=== PATIENT | male | born 1945 | race African-American/Black ===

== ENCOUNTER 2018-07-14 11:30 | Emergency (ER) | payer MEDICARE ==
[~2018-07-14] VITALS: Ht 177.8 cm; Wt 110.7 kg
--- NOTE | 2018-07-14 11:59 | PHYS DOC ---
Past History Past Medical History: Diabetes, Hypertension Past Surgical History: No Surgical History Alcohol Use: None Drug Use: None Adult General Chief Complaint Chief Complaint: ABDOMINAL PAIN HPI HPI Patient is a 73-year-old male who presents with one-week history of upper abdominal pain with loose stools. Patient indicates that this morning when he woke up he didn't have any pain but then he ate breakfast consisted of sausage and eggs and states that the pain had returned. Currently rates his pain to be a 9 out of 10. He states that he is very nauseated but has not been able to vomit. He states that yesterday he had eaten Serbian food and his abdominal pain returned after the Serbian food. Patient does indicate that he has not had any abdominal surgeries. He states that his last bowel movement was last night. Review of Systems Review of Systems Constitutional: Denies fever or chills [] Respiratory: Denies cough or shortness of breath [] Cardiovascular: No additional information not addressed in HPI [] GI: Complains of upper abdominal pain with nausea and diarrhea [] : Denies dysuria or hematuria [] Musculoskeletal: Denies back pain or joint pain [] All other systems were reviewed and found to be within normal limits, except as documented in this note. Current Medications Current Medications Current Medications Medications (Trade) Dose Ordered Sig/[facility] Start Time Stop Time Status Last Admin Dose Admin Fentanyl Citrate (Fentanyl 2ml Vial) 25 mcg 1X ONCE 07/14/18 12:00 07/14/18 12:01 Ondansetron HCl (Zofran) 4 mg 1X ONCE 07/14/18 12:00 07/14/18 12:01 Sodium Chloride 1,000 ml @ 150 mls/hr [id number] 07/14/18 11:36 07/14/18 18:15 Allergies Allergies Allergies Coded Allergies Type Severity Reaction Last Updated Verified Penicillins Allergy Unknown 07/14/18 Yes amlodipine Allergy Unknown 07/14/18 Yes diazepam Allergy Unknown 07/14/18 Yes sulfamethoxazole Allergy Unknown 07/14/18 Yes trimethoprim Allergy Unknown 07/14/18 Yes Physical Exam Physical Exam Constitutional: Well developed, well nourished, no acute distress, non-toxic appearance. [] HENT: Normocephalic, atraumatic, bilateral external ears normal, oropharynx moist, no oral exudates, nose normal. [] Eyes: PERRLA, EOMI, conjunctiva normal, no discharge. [] Neck: Normal range of motion, no tenderness, supple. [] Cardiovascular: Regular rate and rhythm [] Lungs & Thorax: Bilateral breath sounds clear to auscultation [] Abdomen: Bowel sounds slightly diminished, soft, with moderate right upper quadrant tenderness. [] Skin: Warm, dry, no erythema, no rash. [] Extremities: No tenderness, no cyanosis, no clubbing, ROM intact, no edema. [] Neurologic: Awake and alert, no focal deficits noted. [] Current Patient Data Vital Signs Vital Signs Date Time Temp Pulse Resp B/P (MAP) Pulse Ox O2 Delivery O2 Flow Rate FiO2 07/14/18 11:41 98.2 86 18 98 Room Air EKG EKG [] Radiology/Procedures Radiology/Procedures [] Impressions: PROCEDURE: CT ABDOMEN PELVIS WO CONTRAST PQRS Compliance statement: One or more of the following individualized dose reduction techniques were utilized for this examination: 1. Automated exposure control. 2. Adjustment of the mA and/or kV according to patient size. 3. Use of iterative reconstruction technique. Indication:UPPER ABDOMINAL PAIN ALL THE WAY ACROSS
NO ORAL OR IV CONTRAST TECHNIQUE: CT abdomen and pelvis without IV contrast with multiplanar reformats. COMPARISON: None FINDINGS: Limited evaluation of solid abdominal and pelvic organs due to lack of IV contrast. Heart is normal in size. No pericardial or pleural effusion. Clear lung bases. Moderate-sized sliding hiatal hernia. Noncontrast appearance of the liver, spleen, gallbladder, pancreas, adrenals and kidneys is within normal limits. No enlarged retroperitoneal or pelvic adenopathy. No free pelvic fluid or ascites. Small left fat-containing inguinal hernia. Small omental fat-containing medical hernia measuring 5.9 x 3.6 cm with neck of the hernia measuring 4 cm. The prostate and seminal vesicles show no large mass. Urinary bladder is within normal limits. Normal appendix. No pneumoperitoneum. No suspicious bony lesion. IMPRESSION: Limited evaluation of solid abdominal and pelvic organs due to lack of IV contrast. 1. Moderate sliding hiatal hernia. 2. Small omental fat-containing umbilical hernia. Electronically signed by: Feliz Alcala DO (07/14/2018 1:52 PM) [facility] Course & Med Decision Making Course & Med Decision Making Pertinent Labs and Imaging studies reviewed. (See chart for details) [] Dragon Disclaimer Dragon Disclaimer This electronic medical record was generated, in whole or in part, using a voice recognition dictation system. Departure Departure: Impression: Primary Impression: Epigastric abdominal pain Additional Impression: Gastritis Disposition: HOME, SELF-CARE Condition: STABLE Referrals: PCP,NO (PCP) Patient Instructions: Abdominal Pain, Gastritis, Adult Scripts Ranitidine Hcl (ZANTAC) 150 Mg Tablet 1 TAB PO BID for heartburn, #30 TAB Prov: YVROSE ZULETA Jr. DO 07/14/18 Ondansetron Hcl (ZOFRAN) 4 Mg Tablet 1 TAB PO Q8HRS PRN for NAUSEA/VOMITING, #12 TAB Prov: YVROSE ZULETA Jr. DO 07/14/18 Hydrocodone Bit/Acetaminophen (NORCO 5-325 TABLET) 1 Each Tablet 1 TAB PO PRN Q6HRS PRN for PAIN, #12 TAB 0 Refills Prov: YVROSE ZULETA Jr. DO 07/14/18 Problem Qualifiers Additional Impression: Gastritis Gastritis type: unspecified gastritis Chronicity: unspecified Gastritis bleeding: without bleeding Qualified Codes: K29.70 - Gastritis, unspecified, without bleeding YVROSE ZULETA Jr. DO Jul 14, 2018 11:59
[2018-07-14] MEDS: IV NORMAL SALINE 1,000ML 1,000 ML IV SCH (12:07)
[2018-07-14] MEDS: ONDANSETRON PF 4 MG/2 ML VIAL. IV ONE (12:08)
[2018-07-14 12:19] LABS: BILIRUBIN,URINE NEG (NEG); CLARITY,URINE CLEAR; COLOR,URINE YELLOW; GLUCOSE,URINE 500 mg/dL (NEG)
[2018-07-14 12:20] LABS: BACTERIA,URINE 0 /HPF (0-FEW); NITRITE,URINE NEG (NEG); SQUAMOUS EPITHELIAL CELL,UR OCC /LPF; UROBILINOGEN,URINE 0.2 mg/dL (0.2 mg/dL); WBC,URINE OCC /HPF (0-4)
[2018-07-14 12:47] LABS: BASO % 0 % (0-3); EOS # 0.1 x10^3/uL (0.0-0.7); EOS % 2 % (0-3); HEMATOCRIT 42.5 % (39.0-53.0); HEMOGLOBIN 13.5 g/dL (13.0-17.5); LYMPH # 1.5 x10^3/uL (1.0-4.8); LYMPH % 18 % (24-48); MEAN CORPUSCULAR HEMOGLOBIN 21 pg (25-35); MEAN CORPUSCULAR HGB CONC 32 g/dL (31-37); MEAN CORPUSCULAR VOLUME 67 fL (79-100); MONO # 0.8 x10^3/uL (0.0-1.1); MONO % 9 % (0-9); NEUT # 6.1 x10^3uL (1.8-7.7); NEUT % 71 % (31-73); PLATELET COUNT 209 x10^3/uL (140-400); RED BLOOD COUNT 6.32 x10^6/uL (4.30-5.70); RED CELL DISTRIBUTION WIDTH 16.7 % (11.5-14.5); WHITE BLOOD COUNT 8.5 x10^3/uL (4.0-11.0)
[2018-07-14 13:00] LABS: ALBUMIN 3.5 g/dL (3.4-5.0); ALBUMIN/GLOBULIN RATIO 0.9 (1.0-1.7); CALCIUM 9.2 mg/dL (8.5-10.1); CREATININE 1.5 mg/dL (0.7-1.3); GFR 55.8; POTASSIUM 3.8 mmol/L (3.5-5.1); TOTAL BILIRUBIN 0.6 mg/dL (0.2-1.0); TOTAL PROTEIN 7.5 g/dL (6.4-8.2)
[2018-07-14 13:26] VITALS: BP 148/89
[2018-07-14 13:41] LABS: PLT ESTIMATE ADEQUATE (ADEQUATE)
[2018-07-14 13:42] LABS: OVALOCYTES FEW
[2018-07-14 13:43] LABS: ANISOCYTOSIS SLIGHT; HYPOCHROMIA SLIGHT; MICROCYTOSIS MOD; POLYCHROMASIA SLIGHT
[2018-07-14 13:45] LABS: TEAR DROP CELLS FEW
--- NOTE | 2018-07-14 13:56 | RAD ---
PQRS Compliance statement: One or more of the following individualized dose reduction techniques were utilized for this examination: 1. Automated exposure control. 2. Adjustment of the mA and/or kV according to patient size. 3. Use of iterative reconstruction technique. Indication:UPPER ABDOMINAL PAIN ALL THE WAY ACROSS
NO ORAL OR IV CONTRAST TECHNIQUE: CT abdomen and pelvis without IV contrast with multiplanar reformats. COMPARISON: None FINDINGS: Limited evaluation of solid abdominal and pelvic organs due to lack of IV contrast. Heart is normal in size. No pericardial or pleural effusion. Clear lung bases. Moderate-sized sliding hiatal hernia. Noncontrast appearance of the liver, spleen, gallbladder, pancreas, adrenals and kidneys is within normal limits. No enlarged retroperitoneal or pelvic adenopathy. No free pelvic fluid or ascites. Small left fat-containing inguinal hernia. Small omental fat-containing medical hernia measuring 5.9 x 3.6 cm with neck of the hernia measuring 4 cm. The prostate and seminal vesicles show no large mass. Urinary bladder is within normal limits. Normal appendix. No pneumoperitoneum. No suspicious bony lesion. IMPRESSION: Limited evaluation of solid abdominal and pelvic organs due to lack of IV contrast. 1. Moderate sliding hiatal hernia. 2. Small omental fat-containing umbilical hernia. Electronically signed by: Feliz Aclala DO (07/14/2018 1:52 PM) [facility]
[2018-07-14] MEDS ORDERED: HYDR-3165 PO (14:10)
[2018-07-14] MEDS ORDERED: ONDA4TAB7 PO (14:10)
[2018-07-14] MEDS ORDERED: RANI150T21 PO (14:10)
--- NOTE | 2018-07-15 17:41 | EKG ---
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
== END 2018-07-14 14:20 | disposition home or self-care (01) ==
LOC: ER 11:30
DX: K29.70 Gastritis, unspecified, without bleeding (principal); E11.9 Type 2 diabetes mellitus without complications; I10 Essential (primary) hypertension; K44.9 Diaphragmatic hernia without obstruction or gangrene; K42.9 Umbilical hernia without obstruction or gangrene; Z88.0 Allergy status to penicillin; Z88.1 Allergy status to other antibiotic agents; Z88.8 Allergy status to other drugs, medicaments and biological substances; Z88.2 Allergy status to sulfonamides
CPT/HCPCS: 36415; 74176; 80053; 81001; 84484; 85025; 93005; 96361; 96374; 96375; 96376; 99284; J2405; J3010; J7030

== ENCOUNTER 2018-07-30 05:25 | Emergency (ER) | payer MEDICARE ==
[~2018-07-30] VITALS: Ht 172.7 cm; Wt 121.1 kg
[~2018-07-30 05:25] MED LIST: HYDR-3165 PO; ONDA4TAB7 PO; RANI150T21 PO
[2018-07-30] MEDS ORDERED: ONDANSETRON PF 4 MG/2 ML VIAL. IV ONE (05:45)
--- NOTE | 2018-07-30 06:01 | PHYS DOC ---
Past History Past Medical History: Diabetes, Hypertension Past Surgical History: No Surgical History Alcohol Use: None Drug Use: None Adult General Chief Complaint Chief Complaint: CHEST PAIN HPI HPI 73-year-old male presents via EMS with chest pain. The patient was woken from sleep about 2 hours ago with a central chest pressure that he describes as a "gas bubble". He tells me that he has had increased frequency of belching for the last 7 days he is unsure why this is. The patient states that the pain was 10 out of 10 at its worst. It is now a 5 out of 10 on arrival. The patient was given aspirin prior to arrival. He has had some nausea, but denies shortness of breath or diaphoresis. During my interview he tells me that he started to have some tingling in his right arm. His last stress test was 2 years ago and was reportedly negative. He has had no cardiac interventions in the past. He denies fever or chills. He also complains of some increased abdominal tension. Review of Systems Review of Systems Constitutional: Denies fever or chills [] Eyes: Denies change in visual acuity, redness, or eye pain [] HENT: Denies nasal congestion or sore throat [] Respiratory: Denies cough or shortness of breath [] Cardiovascular: No additional information not addressed in HPI [] GI: Nausea. Denies abdominal pain, vomiting, bloody stools or diarrhea [] : Denies dysuria or hematuria [] Musculoskeletal: Denies back pain or joint pain [] Integument: Denies rash or skin lesions [] Neurologic: Denies headache, focal weakness or sensory changes [] Endocrine: Denies polyuria or polydipsia [] All other systems were reviewed and found to be within normal limits, except as documented in this note. Current Medications Current Medications Current Medications Medications (Trade) Dose Ordered Sig/Kristy Start Time Stop Time Status Last Admin Dose Admin Ondansetron HCl (Zofran) 4 mg 1X ONCE 07/30/18 05:45 07/30/18 05:47 DC Allergies Allergies Allergies Coded Allergies Type Severity Reaction Last Updated Verified Penicillins Allergy Unknown 07/14/18 Yes amlodipine Allergy Unknown 07/14/18 Yes diazepam Allergy Unknown 07/14/18 Yes sulfamethoxazole Allergy Unknown 07/14/18 Yes trimethoprim Allergy Unknown 07/14/18 Yes Physical Exam Physical Exam Constitutional: Well developed, well nourished, no acute distress, non-toxic appearance. [] HENT: Normocephalic, atraumatic, bilateral external ears normal, oropharynx moist, no oral exudates, nose normal. [] Eyes: PERRLA, EOMI, conjunctiva normal, no discharge. [] Neck: Normal range of motion, no tenderness, supple, no stridor. [] Cardiovascular:Heart rate regular rhythm, no murmur [] Lungs & Thorax: Bilateral breath sounds clear to auscultation [] Abdomen: Bowel sounds normal, soft, no tenderness, no masses, no pulsatile masses. [] Skin: Warm, dry, no erythema, no rash. [] Back: No tenderness, no CVA tenderness. [] Extremities: No tenderness, no cyanosis, no clubbing, ROM intact, no edema. [] Neurologic: Alert and oriented X 3, normal motor function, normal sensory function, no focal deficits noted. [] Psychologic: Affect normal, judgement normal, mood normal. [] EKG EKG Sinus rhythm, rate 77, right bundle branch block, delayed GA interval of 344, no ST elevations or depressions, PVC.[] Radiology/Procedures Radiology/Procedures CT of the abdomen with contrast, 07/30/2018: HISTORY: Elevated lipase, epigastric pain Multidetector CT imaging was performed following an IV bolus injection of iodinated contrast material. No oral contrast material was administered for this study. Comparison is made to an exam from 07/14/2018. No hepatic mass or bile duct dilatation is seen. The gallbladder is at the upper limits of normal in size. No dense gallstones, wall thickening or pericholecystic edema is seen. The pancreas is unremarkable. The spleen is of normal size. The kidneys show no evidence of obstruction or mass. The adrenal glands are unremarkable. There is mild aortoiliac calcific plaquing without evidence of aneurysm. No abdominal adenopathy is seen. There is a moderate sized hiatal hernia. A 4.3 cm collection of gas and fluid along the superior aspect of the third portion of the duodenum at the midline is compatible with a duodenal diverticulum. The bowel loops are otherwise unremarkable. No free fluid or free air is evident in the abdomen. The patient's known fat-containing periumbilical hernia is only partially visualized on these abdominal images. IMPRESSION: 1. Moderate sized hiatal hernia. 2. Duodenal diverticulum. 3. No acute abdominal abnormality is detected.[] Course & Med Decision Making Course & Med Decision Making Pertinent Labs and Imaging studies reviewed. (See chart for details) I am signing out the patient to at 0600. Lab workup and x-ray pending. Dr. Coto's note Received patient at 6 AM, agree with previous H&P. Patient denies any worsening pain with activity. Patient is uncertain if this pain is similar to the discomfort he was experiencing at the end of last month prompting another emergency department visit. On physical exam his abdomen is soft. There is diffuse tenderness that is worse in the epigastric region, no rebound, no guarding, no rigidity. Lungs lungs were clear to auscultation. Heart was regular with no murmurs, rubs, gallops, or heaves Lipase was noted to be slightly elevated. CT scan did not show any acute features. 0900 patient is having increased pain after returning from the CT scan. Given the symptomatology, imaging, and lab findings, believe this to be more of a gastritis and possible pancreatitis picture. Patient has the history of significant alcohol use/abuse, but has not had alcohol recently. Do not see any evidence of an acute coronary syndrome. Do not see any evidence of an obstruction, perforated viscus, nor significant other intra-abdominal pathology that requires urgent/emergent intervention. Due to the continued discomfort and possibility of pancreatitis, discussion was made with the [place] physician, Dr. Gallegos , who graciously accepted the patient for transfer. Discussed findings with the patient who voiced understanding. All questions were answered.[] Dragon Disclaimer Dragon Disclaimer This electronic medical record was generated, in whole or in part, using a voice recognition dictation system. Departure Departure: Impression: Primary Impression: Gastritis and duodenitis Additional Impression: Pancreatitis Disposition: XF OTHER Condition: STABLE Referrals: PCP,NO (PCP) Patient Instructions: Gastritis, Adult Additional Instructions: Follow-up with your regular doctor in 2 days. If you do not have a regular doctor, list of local clinics will be provided for you. Return to the ER if worsening discomfort or any other concerns. Scripts Lansoprazole (PREVACID) 15 Mg Capsule.dr 1 CAP PO DAILY for gastritis, #30 CAP Prov: KAYCE COTO DO 07/30/18 Problem Qualifiers Additional Impression: Pancreatitis Chronicity: acute Pancreatitis type: unspecified pancreatitis type Acute pancreatitis complication: unspecified Qualified Codes: K85.90 - Acute pancreatitis without necrosis or infection, unspecified BRETT BEASLEY DO Jul 30, 2018 06:01 KAYCE COTO DO Jul 30, 2018 08:59
[2018-07-30 06:27] LABS: BASO % 1 % (0-3); EOS # 0.2 x10^3/uL (0.0-0.7); EOS % 2 % (0-3); HEMATOCRIT 43.7 % (39.0-53.0); HEMOGLOBIN 13.7 g/dL (13.0-17.5); LYMPH # 1.8 x10^3/uL (1.0-4.8); LYMPH % 22 % (24-48); MEAN CORPUSCULAR HEMOGLOBIN 22 pg (25-35); MEAN CORPUSCULAR HGB CONC 31 g/dL (31-37); MEAN CORPUSCULAR VOLUME 69 fL (79-100); MONO # 0.7 x10^3/uL (0.0-1.1); MONO % 9 % (0-9); NEUT # 5.3 x10^3uL (1.8-7.7); NEUT % 66 % (31-73); PLATELET COUNT 211 x10^3/uL (140-400); RED BLOOD COUNT 6.35 x10^6/uL (4.30-5.70); RED CELL DISTRIBUTION WIDTH 16.9 % (11.5-14.5)
[2018-07-30] MEDS ORDERED: LIDO:MAALOX 1:1 20 ML SINGLE DOSE. PO ONE (07:00)
[2018-07-30 07:01] LABS: ALBUMIN 3.4 g/dL (3.4-5.0); ALBUMIN/GLOBULIN RATIO 0.8 (1.0-1.7); CALCIUM 9.7 mg/dL (8.5-10.1); CREATININE 1.4 mg/dL (0.7-1.3); GFR 60.4; POTASSIUM 3.8 mmol/L (3.5-5.1); TOTAL BILIRUBIN 0.6 mg/dL (0.2-1.0); TOTAL PROTEIN 7.9 g/dL (6.4-8.2)
[2018-07-30 07:24] LABS: PLT ESTIMATE ADEQUATE (ADEQUATE); POLYCHROMASIA SLIGHT
[2018-07-30 07:25] LABS: ANISOCYTOSIS SLIGHT; HYPOCHROMIA SLIGHT; MICROCYTOSIS MOD; OVALOCYTES OCC; TARGET CELLS OCC; TEAR DROP CELLS OCC
[2018-07-30] MEDS ORDERED: IOHEXOL 300 MG/ML 75 ML VIAL. IV ONE (08:00)
--- NOTE | 2018-07-30 08:43 | RAD ---
CT of the abdomen with contrast, 07/30/2018: HISTORY: Elevated lipase, epigastric pain Multidetector CT imaging was performed following an IV bolus injection of iodinated contrast material. No oral contrast material was administered for this study. Comparison is made to an exam from 07/14/2018. No hepatic mass or bile duct dilatation is seen. The gallbladder is at the upper limits of normal in size. No dense gallstones, wall thickening or pericholecystic edema is seen. The pancreas is unremarkable. The spleen is of normal size. The kidneys show no evidence of obstruction or mass. The adrenal glands are unremarkable. There is mild aortoiliac calcific plaquing without evidence of aneurysm. No abdominal adenopathy is seen. There is a moderate sized hiatal hernia. A 4.3 cm collection of gas and fluid along the superior aspect of the third portion of the duodenum at the midline is compatible with a duodenal diverticulum. The bowel loops are otherwise unremarkable. No free fluid or free air is evident in the abdomen. The patient's known fat-containing periumbilical hernia is only partially visualized on these abdominal images. IMPRESSION: 1. Moderate sized hiatal hernia. 2. Duodenal diverticulum. 3. No acute abdominal abnormality is detected. PQRS Compliance Statement: One or more of the following individualized dose reduction techniques were utilized for this examination: 1. Automated exposure control 2. Adjustment of the mA and/or kV according to patient size 3. Use of iterative reconstruction technique Moderate degenerative change is noted in the lower lumbar spine. Electronically signed by: Shane Burnham MD (07/30/2018 8:38 AM) [facility]
--- NOTE | 2018-07-30 08:49 | RAD ---
Portable chest, 07/30/2018: HISTORY: Chest pain The patient positioning is lordotic. The heart size and pulmonary vascularity are within normal limits. No pulmonary infiltrate is seen. There is no evidence of pleural fluid. Mild spurring is present in the spine. IMPRESSION: No acute cardiopulmonary abnormality is detected. Electronically signed by: Shane Burnham MD (07/30/2018 8:45 AM) [facility]
[2018-07-30] MEDS ORDERED: LANS15CA78 PO (08:58)
[2018-07-30] MEDS ORDERED: PANTOPRAZOLE IV 40 MG VIAL. IVP ONE (09:15)
[2018-07-30 09:47] VITALS: BP 167/95
--- NOTE | 2018-07-30 17:34 | EKG ---
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
--- NOTE | 2018-07-30 17:34 | EKG ---
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
== END 2018-07-30 10:30 | disposition short-term general hospital (02) ==
LOC: ER 05:25
DX: K29.70 Gastritis, unspecified, without bleeding (principal); K29.80 Duodenitis without bleeding; K85.90 Acute pancreatitis without necrosis or infection, unspecified; K44.9 Diaphragmatic hernia without obstruction or gangrene; K57.10 Diverticulosis of small intestine without perforation or abscess without bleeding; E11.9 Type 2 diabetes mellitus without complications; I10 Essential (primary) hypertension; Z88.0 Allergy status to penicillin; Z88.1 Allergy status to other antibiotic agents; Z88.8 Allergy status to other drugs, medicaments and biological substances
CPT/HCPCS: 36415; 71045; 74160; 80053; 83690; 83880; 84484; 85025; 93005; 96374; 96375; 99285; C9113; J2405; Q9967